=== PATIENT | male | born 1995 | race Asian ===

== ENCOUNTER 2017-05-07 23:44 | Emergency (ER) | payer OTHER ==
[2017-05-07 23:50] VITALS: BP 125/70; PULSE 56; RESP 16; TEMP 98.2; O2SAT 96
[2017-05-08] MEDS ORDERED: TDAP ADULT 0.5 ML INJ (BOOSTRIX) IM ONE ×3 (00:01→00:10)
--- NOTE | 2017-05-08 00:02 | EDPHY ---
H & P Time Seen by Provider: 05/07/17 23:55 HPI/ROS: CHIEF COMPLAINT: Laceration left thumb HISTORY OF PRESENT ILLNESS: 21-year-old male with out-of-date tetanus, immunocompetent, complaining of accidental laceration left thumb he was closing a pocket knife. No paresthesia. No sensory or motor deficit. Occurred earlier this evening. PHYSICAL EXAM (Prior to examination, patient consented to physical exam, hands were washed and my usual and customary physical exam procedures followed) 1) GENERAL: Well-developed, well-nourished, alert and oriented. Appears to be in no acute distress. 2) HEAD: Normocephalic 3) HEENT: sclera anicteric 4) LUNGS: Breathing comfortably. 5) SKIN: left thumb proximal phalanx 1.5 cm laceration, superficial 6) MUSCULOSKELETAL: flexor, extensor function at the MCP and IP are intact with no deficits 7) NEUROLOGIC: Full sensation distally to all digits including two-point discrimination Smoking Status: Current some day smoker Constitutional: Initial Vital Signs Temperature (C) 36.8 C 05/07/17 23:47 Heart Rate 56 L 05/07/17 23:47 Respiratory Rate 16 05/07/17 23:47 Blood Pressure 125/70 H 05/07/17 23:47 O2 Sat (%) 96 05/07/17 23:47 O2 Delivery Mode Room Air Allergies/Adverse Reactions: No Known Allergies Allergy (Unverified 05/07/17 23:47) Home Medications: Medication Instructions Recorded NK [No Known Home Meds] 05/07/17 MDM/Departure - MDM Procedures: Procedure: Laceration repair. I explained the indications, risks and benefits for both laceration repair and anesthetic administration. Verbal consent was obtained from the patient . The laceration on the left thumb was anesthetized using 0.5% bupivicaine without epinephrine . After anesthetic administered the patient was observed for a period of time and had no apparent adverse effects. The wound was cleaned, prepped, draped in normal sterile fashion and explored to its base. No foreign body seen, no foreign bodies palpated. There were no deep structures involved. No tendon injury was identified. The wound was repaired with 4 simple interrupted 5 O Prolene suture. The wound repair was simple. The procedure was performed by myself. Patient has been informed that scarring will occur, although efforts have been made to minimize this. Medications Given: Discontinued Medications Diphtheria/Tetanus/Acell Pertussis (Boostrix) 0.5 ml IM .ONCE ONE Stop: 05/08/17 00:02 Last Admin: 05/08/17 00:11 Dose: 0.5 ml - Depart Disposition: Home, Routine, Self-Care Clinical Impression: Laceration of left thumb Qualifiers: Encounter type: initial encounter Damage to nail status: with damage Foreign body presence: without foreign body Qualified Code(s): S61.112A - Laceration without foreign body of left thumb with damage to nail, initial encounter Condition: Good Instructions: Laceration (ED), Care For Your Stitches (ED) Additional Instructions: Return to the ER if you develop redness, swelling, discharge, warmth to the wound, red streaks going up your arm , or any other symptoms that concern you. Referrals: Return, to the ER in 10 days for suture removal [Other] - 05/18/17
== END 2017-05-08 00:44 | disposition home or self-care (01) ==
PROC: 0HQGXZZ Repair Left Hand Skin, External Approach (ICD-10-PCS; principal; 2017-05-07)
DX: S61.112A Laceration without foreign body of left thumb with damage to nail, initial encounter (principal); F17.200 Nicotine dependence, unspecified, uncomplicated; Z23 Encounter for immunization; W26.0XXA Contact with knife, initial encounter; Y99.8 Other external cause status; Y93.89 Activity, other specified